=== PATIENT | female | born 1980 | race Hispanic/Latino ===

== ENCOUNTER 2025-08-01 16:41 | Emergency (ER) | payer BC ==
[~2025-08-01] VITALS: Ht 160 cm; Wt 131.5 kg
[2025-08-01 18:14] LABS: IMMATURE GRANULOCYTE ABSOLUTE 0.05 K/uL (0-1); NUCLEATED RED BLOOD CELLS 0.0 % (0.0-0.19); PLATELET COUNT (AUTO) 232 K/uL (130-400); RED BLOOD CELL COUNT(AUTO) 4.73 MIL/uL (4.00-5.50); RED CELL DISTRIBUTION WIDTH 13.7 % (11.0-15.5); WHITE BLOOD COUNT (AUTO) 8.6 K/uL (4.8-10.8)
[2025-08-01] MEDS: 0.9%NACL 1000ML 1,000 ML IV ONE (18:18)
[2025-08-01 18:25] LABS: CREATININE 0.7 mg/dL (0.5-1.0); GLOMERULAR FILTR. RATE CALC 110.0 mL/min (>90); GLUCOSE,RANDOM 106.0 mg/dL (70-105); SODIUM SERUM 137.0 mmol/L (136-145); UREA NITROGEN, BLOOD 8.0 mg/dL (7-18)
[2025-08-01] MEDS ORDERED: IOHEXOL-350 75 ML VIAL IV ONE (18:48)
--- NOTE | 2025-08-01 18:55 | HMCIMG ---
EXAM: US Pelvis, Complete Transvaginal and Transabdominal COMPARISON: None provided. CLINICAL HISTORY: r/o ovarian torsion TECHNIQUE: Transvaginal and transabdominal pelvic ultrasound (complete) with image documentation. FINDINGS: ENDOMETRIUM: Measures 13 mm, within normal limits. UTERUS/CERVIX: The uterus measures 11.3 x 5.7 x 5.8 cm. A fibroid measuring 2.1 x 2 x 2.6 cm is noted in the anterior wall. Multiple nabothian cysts are seen. RIGHT OVARY: Measures 2.9 x 2 x 2.8 cm. Normal Doppler flow. Vascularity preserved. No abnormal mass. Negative for torsion. LEFT OVARY: Measures 2.7 x 1.7 x 2.8 cm. Normal Doppler flow. Vascularity preserved. No abnormal mass. Negative for torsion. FREE FLUID: No free fluid. IMPRESSION: Anterior wall uterine fibroid as described Ovaries unremarkable with preserved vascularity. No acute abnormality. /[place]
--- NOTE | 2025-08-01 19:46 | HMCIMG ---
EXAM: CT Abdomen and Pelvis with IV contrast CLINICAL HISTORY: Patient presents with right lower quadrant abdominal pain to rule out appendicitis. TECHNIQUE: Axial computed tomography images of the abdomen and pelvis with intravenous contrast. CONTRAST: Administered intravenously. COMPARISON: None provided. FINDINGS: LUNG BASES: The lung bases appear clear. No pleural effusions are seen. LIVER: Decreased attenuation of the liver in comparison to the spleen. GALLBLADDER AND BILE DUCTS: The gallbladder appears within normal limits. No radioopaque gallstones are seen. No biliary ductal dilatation is evident. PANCREAS: Unremarkable. SPLEEN: Unremarkable. ADRENAL GLANDS: Unremarkable. KIDNEYS, URETERS, AND BLADDER: The kidneys appear within normal limits. No hydronephrosis or hydroureter. No urinary calculi are seen. STOMACH AND BOWEL: Unremarkable appearance of the stomach and bowel. No evidence of bowel obstruction. No evidence suggesting enteritis or colitis. APPENDIX: No CT imaging features of acute appendicitis. PERITONEUM: No free fluid. No free air. LYMPH NODES: Few tiny mesenteric lymph nodes in the right lower quadrant. REPRODUCTIVE: Adnexal cysts. VASCULATURE: No evidence of abdominal aortic aneurysm. BONES: No aggressive appearing osseous lesion. No acute osseous pathology evident. IMPRESSION: No acute appendicitis. /[place]
[2025-08-01 20:23] VITALS: BP 134/64; PULSE 74; RESP 18; TEMP 98.5; O2SAT 98
--- NOTE | 2025-08-01 21:14 | ERN ---
General Chief Complaint: Abdominal Pain Stated Complaint: ABDOMINAL PAIN RLQ R/O APPENDICITIS Time Seen by MD: 17:06 Time Seen by Midlevel: 17:06 Source: patient History of Present Illness Initial Comments The patient is a pleasant 44-year-old female presenting to the emergency department for evaluation of right lower quadrant abdominal pain. Patient stat es her pain has been ongoing intermittently for two months however today it became increasingly worse. She saw her primary care doctor for performed an ultrasound which revealed an enlarged appendix so she was sent to the ER to rule out appendicitis. Allergies: Coded Allergies: No Known Allergies (Unverified Allergy, Unknown, 08/01/25) Past Medical History Past Medical History: No Pertinent History Past Surgical History: BTL ROS Dictation CONSTITUTIONAL: Negative except for HPI HEAD/FACE: Negative except for HPI EENT: Negative except for HPI RESPIRATORY: Negative except for HPI GASTROINTESTINAL/ABDOMINAL: Negative except for HPI GENITOURINARY: Negative except for HPI MUSCULOSKELETAL: Negative except for HPI INTEGUMENTARY: Negative except for HPI NEUROLOGICAL/PSYCH: Negative except for HPI HEMATOLOGIC/LYMPHATIC: Negative except for HPI All Systems Negative, Except as noted above. 13 point review of systems assessed and all negative except for above. Physical Exam Physical Exam Dictation Vital Signs reviewed General Appearance: Alert, oriented x 3, no acute distress, well developed, nourished. Head and Face: non-traumatic. Eyes: PERRL, pink conjunctivas, eyelid no trauma, anterior chamber with arcus senilis. Ears: Pinnas intact and no signs of trauma or erythema ear canals clear and no discharge TM no erythema Nose: No discharge, no bleeding. Oropharynx: Mouth normal, tongue pink, pharynx clear,no erythema, tonsils no exudates, no abscesses noted, mucous membrane moist Neck: Supple, non-tender, no thyromegaly, no masses, no JVD, no bruits Breast:Deferred Chest:No tenderness, no crepitus, no paradoxical movement, no retractions Lungs:Clear, well-ventilated, symmetric, no rales, no wheezing, no rhonchi, no stridor, good breath sounds bilaterally Heart: Regular rate, regular rhythm, no murmur, no gallops Vascular: no peripheral edema, Abdomen: Soft, positive bowel sounds, nondistended, no guarding, Right lower quadrant abdominal tenderness, no rebound, no masses no hepatomegaly, no splenomegaly, no Zhou's sign, no hernias. Rectal: Deferred Genital: Deferred Neurological: Normal speech, motor function intact, sensory function intact Musculoskeletal: Neck nontender, full range of motion, back nontender, full range of motion, Extremities: nontender, full range of motion Skin: Color pink, dry, no turgor, no rash, no lacerations, no abrasions, no contusions. Lymphatic: Deferred Results Laboratory and Microbiology Lab and Micro Result Laboratory Tests Test 08/01/25 18:03 White Blood Count 8.6 K/uL (4.8-10.8) Red Blood Count 4.73 MIL/uL (4.00-5.50) Hemoglobin 13.4 g/dL (12.0-16.0) Hematocrit 42.4 % (36-48) Mean Corpuscular Volume 89.6 fL (79-99) Mean Corpuscular Hemoglobin 28.3 pg (27.0-33.0) Mean Corpuscular Hemoglobin Concent 31.6 g/dL (32.0-36.0) L Red Cell Distribution Width 13.7 % (11.0-15.5) Platelet Count 232 K/uL (130-400) Mean Platelet Volume 11.2 fL (7.5-10.5) H Immature Granulocyte % (Auto) 0.6 % (0-1) Neutrophils (%) (Auto) 60.0 % (40.0-77.0) Lymphocytes (%) (Auto) 31.0 % (21.0-51.0) Monocytes (%) (Auto) 6.5 % (3.0-13.0) Eosinophils (%) (Auto) 1.3 % (0.0-8.0) Basophils (%) (Auto) 0.6 % (0.0-5.0) Neutrophils # (Auto) 5.2 K/uL (1.8-7.7) Lymphocytes # (Auto) 2.7 K/uL (1.0-4.8) Monocytes # (Auto) 0.6 K/uL (0.1-1.0) Eosinophils # (Auto) 0.11 K/uL (0.00-0.70) Basophils # (Auto) 0.05 K/uL (0.00-0.20) Absolute Immature Granulocyte (auto 0.05 K/uL (0-1) Nucleated Red Blood Cells 0.0 % (0.0-0.19) Sodium Level 137 mmol/L (136-145) Potassium Level 3.9 mmol/L (3.5-5.1) Chloride Level 102 mmol/L (101-111) Carbon Dioxide Level 28 mmol/L (21-32) Blood Urea Nitrogen 8 mg/dL (7-18) Creatinine 0.7 mg/dL (0.5-1.0) Glomerular Filtration Rate Calc 110 mL/min (>90) Random Glucose 106 mg/dL (70-105) H Lactic Acid Level 1.3 mmol/L (0.8-2.5) Total Calcium 8.7 mg/dL (8.5-10.1) Serum Test, Qualitative NEGATIVE (NEGATIVE) Labs Reviewed?: Yes MDM MDM: Differential diagnosis: Acute appendicitis, urinary tract infection, acute pyelonephritis, There are no social concerns with this patient. Prescription drug management Prescriptions will include: None Medical management and examination interpretation discussions were had by me with other qualified healthcare professionals as indicated for the patient's care. ED Course Orders Procedure Category Date Status Time Cbc With Differential LAB 08/01/25 Complete 17:08 Basic Metabolic Panel LAB 08/01/25 Complete 17:08 Urinalysis Profile LAB 08/01/25 Logged 17:08 Lactic Acid LAB 08/01/25 Complete 17:08 Ct Abdomen/Pelvis CT 08/01/25 Resulted W/Contrast 17:08 Morphine 2mg Syg PHA 08/01/25 Complete (Morphine 2mg Syg) 17:30 0.9%Nacl 1000ml (Ns PHA 08/01/25 Complete 1000ml) 17:30 Us Pelvic Non-Ob US 08/01/25 Resulted Limited 17:13 Testing, LAB 08/01/25 Complete Serum Hcg 17:14 Us Transvaginal Non-Ob US 08/01/25 Taken Ondansetron 4mg Inj PHA 08/01/25 Complete (Zofran 4mg Inj) 18:30 Morphine 4mg Syg PHA 08/01/25 Complete (Morphine 4mg Syg) 18:08 Morphine 4mg Syg PHA 08/01/25 Complete (Morphine 4mg Syg) 18:30 Iohexol (Omnipaque) PHA 08/01/25 Complete 18:48 Current Medications Medications (Trade) Dose Ordered Sig/Carlos Route PRN Reason Start Time Stop Time Status Last Admin Dose Admin Iohexol (Omnipaque) 75 ml STK-MED ONCE IV 08/01/25 18:48 08/01/25 18:48 DC Morphine Sulfate (morPHINE 2MG SYG) 2 mg ONCE ONCE IVP 08/01/25 17:30 08/01/25 17:31 DC Morphine Sulfate (morPHINE 4MG SYG) 2 mg ONCE ONCE IVP 08/01/25 18:30 08/01/25 18:31 DC 08/01/25 18:18 Morphine Sulfate (morPHINE 4MG SYG) 4 mg STK-MED ONCE .ROUTE 08/01/25 18:08 08/01/25 18:08 DC Ondansetron HCl (zoFRAN 4MG INJ) 4 mg ONCE ONCE IVP 08/01/25 18:30 08/01/25 18:31 DC 08/01/25 18:18 Sodium Chloride 1,000 ml @ 0 mls/hr ONCE ONCE IV 08/01/25 17:30 08/01/25 17:31 DC 08/01/25 18:18 Vital Signs Date Time Temp Pulse Resp B/P (MAP) Pulse Ox O2 Delivery O2 Flow Rate FiO2 08/01/25 20:23 98.4 74 18 134/64 98 Room Air* 0 21 08/01/25 18:48 98.2 80 18 137/89 99 Room Air* 0 21 08/01/25 16:43 98.2 83 20 143/97 99 Room Air 0 DX & DISP Disposition: Discharge Departure Impression: Primary Impression: Right lower quadrant abdominal pain Additional Impression: Uterine fibroid Condition: Stable Additional Instructions: Your blood work today is unremarkable. There are no signs of systemic infection. Your CT scan of the abdomen and pelvis shows slightly enlarge lymph nodes in the right lower quadrant area which could be causing your pain. However on CT scan there was no evidence of acute appendicitis. An ultrasound was performed which reveals a uterine fibroid. There was no evidence of an ovarian torsion or ovarian cyst. Please follow up with your primary care doctor and OBGYN as discussed. Referrals: NILES DEMPSEY MD (PCP) Time of Disposition: 21:13 I have reviewed the case, and I agree with, Diagnosis and Plan I performed the substantive portion of the visit. I have reviewed and personally made and approve the management plan that is documented in the note by myself or the NAOMIE. I acknowledge for responsibility for the patient's management plan. JAVIER BREWSTER PAC Aug 01, 2025 21:14
== END 2025-08-01 21:26 | disposition home or self-care (01) ==
LOC: EDH 16:41
DX: D25.9 Leiomyoma of uterus, unspecified (principal); Z98.51 Tubal ligation status
CPT/HCPCS: 99285; 74177; 96374; 76830; 76857; 96361; 96375; 80048; 84703; 85025; 83605; 36415; J7030; J2405; J2270; Q9967